=== PATIENT | female | born 1955 | race Caucasian/White ===

== ENCOUNTER 2023-11-06 18:20 | Inpatient (IN) | payer OTHER ==
[2023-11-06 19:33] LABS: HEMATOCRIT 38.3 % (32.4-45.2); MCH 26.6 pg (25.7-33.7); MCHC 31.4 g/dl (32.0-36.0); MEAN CELL VOLUME 84.7 fl (80-96); MEAN PLT VOLUME 8.4 fl (7.5-11.1); PLATELET COUNT 266.7 10^3/uL (134-434); RBC 4.52 10^6/uL (3.60-5.2); RDW 14.8 % (11.6-15.6); WHITE BLOOD COUNT 8.4 10^3/uL (4.0-10.8)
[2023-11-06 19:44] LABS: ACTIVATED PTT 28.1 SECONDS (25.2-36.5)
[2023-11-06 19:50] LABS: ALBUMIN 3.5 g/dl (3.4-5.0); BILIRUBIN,TOTAL 0.5 mg/dl (0.2-1); CALCIUM 8.6 mg/dl (8.5-10.1); CREATININE 0.8 mg/dl (0.6-1.3); INR 1.04 (0.83-1.09); POTASSIUM 3.6 mmol/L (3.5-5.1); PROTHROMBIN TIME (PATIENT) 11.8 SEC (9.7-13.0); TOT PROT 6.4 g/dl (6.4-8.2)
[2023-11-06 19:55] LABS: PLATELET ESTIMATE ADEQUATE
[2023-11-06] MEDS ORDERED: ASPIRIN 81 MG CHEWABLE TABLETS PO ONE (20:20)
[2023-11-06] MEDS ORDERED: ASPIRIN 81 MG CHEWABLE TABLETS ONE (20:21)
[2023-11-06] MEDS ORDERED: DOCUSATE SODIUM 100 MG CAPSULE (FP) PO PRN (20:28)
[2023-11-06] MEDS ORDERED: ACETAMINOPHEN 325 MG TABLET (FP) PO PRN (20:28)
[2023-11-06] MEDS: ASPIRIN 81 MG CHEWABLE TABLETS PO ONE (20:30)
[2023-11-06] MEDS ORDERED: ACETAMINOPHEN INJECTION 100 ML IVPB ONE (20:48)
[2023-11-06] MEDS: ACETAMINOPHEN 1000 MG/100 ML BAG IVPB ONE (20:52)
[2023-11-06] MEDS ORDERED: HEPARIN INFUSION - 25,000 UNITS/500 ML INFUS.BAG IVPB ONE (21:40)
[2023-11-06] MEDS ORDERED: HEPARIN NA (PORCINE) 5,000 UNITS/ML 1ML VIAL ONE (21:40)
[2023-11-06] MEDS ORDERED: ONDANSETRON 4 MG/2 ML VIAL ONE (22:48)
[2023-11-07 00:26] VITALS: BMI 33.3
[2023-11-07] MEDS: LEVOTHYROXINE NA 50 MCG TABLET (FP) PO SCH (07:31)
[2023-11-07 08:15] LABS: BASO % 0.7 % (0-2.0); EOS % 2.2 % (0-4.5); HEMATOCRIT 36.8 % (32.4-45.2); HEMOGLOBIN 12.1 GM/dL (10.7-15.3); LYMPH % 18.4 % (8-40); MCH 27.4 pg (25.7-33.7); MEAN CELL VOLUME 83.2 fl (80-96); MEAN PLT VOLUME 8.8 fl (7.5-11.1); MONO % 9.3 % (3.8-10.2); NEUT % 69.4 % (42.8-82.8); PLATELET COUNT 257 10^3/uL (134-434); RBC 4.42 M/mm3 (3.60-5.2); RDW 13.5 % (11.6-15.6); WHITE BLOOD COUNT 7.3 K/mm3 (4.0-10.0)
[2023-11-07 08:35] LABS: POTASSIUM 3.8 mmol/L (3.5-5.1)
[2023-11-07 08:36] LABS: CALCIUM 8.8 mg/dL (8.5-10.1)
[2023-11-07 08:37] LABS: BLOOD UREA NITROGEN 6.4 mg/dL (7-18)
[2023-11-07 08:40] LABS: CREATININE 0.6 mg/dL (0.55-1.3)
[2023-11-07 09:16] LABS: ERYTHROCYTE SEDIMENTATION RATE 75 mm/hr (0-30)
[2023-11-07] MEDS: ENOXAPARIN NA (PORCINE) 40 MG/0.4 ML DISP.SYRIN SQ SCH (10:51)
[2023-11-07] MEDS: ASPIRIN COATED 81 MG TABLET.EC PO SCH (10:51)
[2023-11-07 11:04] VITALS: RESP 16
[2023-11-07] MEDS: COLCHICINE 0.6 MG TAB PO ONE (11:23)
[2023-11-07] MEDS: INDOMETHACIN 25 MG CAPSULE PO SCH (13:32)
[2023-11-07 14:32] VITALS: BP 138/75; PULSE 74; TEMP 98.4
[2023-11-08] MEDS ORDERED: COLCHICINE 0.6 MG TAB PO SCH (10:00)
== END 2023-11-07 15:55 | disposition home or self-care (01) | DRG 316 ==
LOC: FER 18:20 → J4W 23:39
PROVIDERS: ADMIT Internal Medicine; ATTEND Internal Medicine
DX: I31.9 Disease of pericardium, unspecified (principal); R50.9 Fever, unspecified; B34.9 Viral infection, unspecified; R07.89 Other chest pain; I10 Essential (primary) hypertension; E03.9 Hypothyroidism, unspecified; R91.1 Solitary pulmonary nodule; E66.9 Obesity, unspecified; Z68.33 Body mass index [BMI] 33.0-33.9, adult; M79.10 Myalgia, unspecified site; Z98.84 Bariatric surgery status
CPT/HCPCS: 0241U-QW; 36415; 71046-TC-FY; 71275-TC; 80048; 80053; 80061; 84439; 84443; 84484; 85025; 85027; 85379; 85610; 85651; 85730; 86140; 93005; 93306-TC; 99285-25; J0131; Q9967

== ENCOUNTER 2023-11-23 09:09 | Emergency (ER) | payer OTHER ==
[2023-11-23 09:14] VITALS: BP 156/91; PULSE 80; RESP 18; TEMP 98; BMI 33.6
[2023-11-23] MEDS ORDERED: APIXABAN 5 MG TABLET ONE (11:05)
[2023-11-23] MEDS: APIXABAN 5 MG TABLET PO ONE (11:23)
== END 2023-11-23 11:30 | disposition home or self-care (01) ==
LOC: FER 09:09
DX: I82.401 Acute embolism and thrombosis of unspecified deep veins of right lower extremity (principal)
CPT/HCPCS: 93971-TC; 99284-25